=== PATIENT | male | born 1955 | race Two or more races ===

== ENCOUNTER 2024-12-17 18:33 | Emergency (ER) | payer MEDICARE, SELFPAY ==
[2024-12-17] VITALS (18 sets, daily range): BP systolic 103–212; BP diastolic 47–98; PULSE 53–70; RESP 6–24; TEMP 36.6–36.8; O2SAT 94–99; BMI 39.9
--- NOTE | 2024-12-17 19:16 | EKG_ITS ---
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
--- NOTE | 2024-12-17 19:16 | XR_ITS ---
Examination: AP chest single view Technique one AP portable upright chest single view Exam date and time: December 17, 1999 2518.4 hours Comparison March 04, 2024 Indications: Onset chest pain today. Findings: Minimal prominence of ventricle Moderate vascular congestion No lobar pneumonia No pulmonary edema Moderate osteopenia Left carotid stent Impression: Moderate vascular congestion
[2024-12-17 19:36] LABS: Basophils % (Auto) 0 % (0-2.5); Eosinophils # (Auto) 0.1 Thou/mm3 (0.0-0.5); Eosinophils % (Auto) 2 % (0-10); Hematocrit 36.9 % (41.0-53.0); Hemoglobin 12.8 g/dL (13.5-16.0); Immature Granulocytes % (Auto) 1 % (0-0); Immature Granulocytes Auto 0.04 Thou/mm3 (0.00-0.00); Lymphocytes # (Auto) 1.2 Thou/mm3 (1.0-4.8); Lymphocytes % (Auto) 17 % (10-50); Mean Corpuscular HGB Conc 34.7 g/dl (31.0-37.0); Mean Corpuscular Hemoglobin 29.3 pg (25.0-35.0); Mean Corpuscular Volume 84 fL (80-100); Monocytes # (Auto) 0.4 Thou/mm3 (0.0-0.8); Monocytes % (Auto) 6 % (0-12); Neutrophils # (Auto) 5.2 Thou/mm3 (1.8-7.7); Neutrophils % (Auto) 74 % (37-80); Nucleated Red Blood Cell % 0 /100 WBC (0); Platelet Count 120 Thou/mm3 (140-440); RDW Standard Deviation 41.6 fL (35.1-43.9); Red Blood Count 4.37 Miln/mm3 (4.50-5.90); White Blood Count 6.9 Thou/mm3 (3.8-10.6)
[2024-12-17 19:55] LABS: B-Type Natriuretic Peptide 79 pg/mL (0-100)
[2024-12-17 19:57] LABS: Alanine Aminotransferase 41 U/L (10-49); Albumin/Globulin Ratio 1.7 (1.2-2.2); Alkaline Phosphatase 81 U/L (46-116); Anion Gap 7 (7-16); Aspartate Amino Transferase 34 U/L (0-34); BUN/Creatinine Ratio 9 Ratio (12-20); Bilirubin,Total 0.6 mg/dL (0.3-1.2); Blood Urea Nitrogen 10 mg/dL (9-23); Calcium 9.3 mg/dL (8.3-10.6); Calcium (Corrected) 9.3 mg/dL (8.5-10.1); Carbon Dioxide 28.4 mMol/L (20.0-31.0); Chloride 105 mMol/L (98-107); Creatinine (Component) 1.1 mg/dL (0.6-1.3); Globulin 2.3 gm/dL (2.3-3.5); Glucose 107 mg/dL (74-106); Lipase 43 U/L (12-53); Osmolality,Calculated 278 (275-295); Potassium 4.1 mMol/L (3.4-5.1); Sodium 140 mMol/L (136-145); Total Protein 6.3 gm/dL (5.7-8.2); Troponin I < 0.020 ng/mL (0.0-0.045); eGFR > 60 See Note
[2024-12-17 19:59] LABS: INR 1.1 (0.9-1.3); Partial Thromboplastin Time 29.1 Seconds (22.0-36.0); Prothrombin Time 12.4 Seconds (9.0-12.2)
--- NOTE | 2024-12-17 21:15 | XR_ITS ---
Examination: CT brain head without contrast. 2-D sagittal coronal reconstructions Date and time of exam:December 17, 2024 2137 hrs. Indications: Onset syncope dizziness today CTDI: vol (mGy):49.2 DLP: (mGycm):942 Technique: Multiple CT axial sections of the brain have been obtained, 5 mm slice thickness. Contrast has not been administered. 2-D sagittal, coronal reconstructions have been obtained Low dose protocols were performed. One or more of the following dose reduction techniques were used; automated exposure control, adjustment of the mA and/or KV according to patient size, use of iterative reconstruction technique. Findings: No significant ventricular enlargement. Intra-axial or extra-axial hemorrhage density is not seen. No mass effect or midline shift Basal cisterns are not remarkable. Fourth ventricle is midline. Cranial vault intact. Impression: Negative for acute hemorrhage, mass effect or midline shift Advise clinical correlation and follow-up accordingly
--- NOTE | 2024-12-17 21:15 | PD.EDSYNC ---
ED Syncope RME/HPI General Chief Complaint: Syncope / Near Syncope Stated Complaint: HYPOTENSION Time Seen by Provider: 12/17/24 19:12 Source: patient and EMS Arrival date/time: 12/17/24 18:33 Mode of arrival: EMS Limitations: no limitations RME / HPI RME / HPI narrative: DR LOVELL MAIN ED EVALUATION: 69-year-old male, brought to the Emergency Department via ambulance for evaluation of a syncopal episode and generalized weakness. The patient reports loss of consciousness while seated, but the duration of the episode is unclear. He denies any preceding chest pain, palpitations, shortness of breath, dizziness, or visual disturbances prior to the event. No postictal confusion, involuntary movements, or loss of bowel or bladder control was reported. 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 He denies any headache, focal weakness, numbness, or speech difficulties. He does not report any associated pain at this time. Related Data Home Medications ?Medication ?Instructions ?Recorded ?Confirmed Doxazosin Mesylate 8 mg PO HS ##0 01/01/16 03/02/24 hydrochlorothiazide 25 mg tablet 25 mg PO QAM High Blood Pressure 01/01/16 03/02/24 #0 tabs lisinopril 20 mg tablet 10 mg PO QDAY High Blood Pressure 01/01/16 03/02/24 #0 tabs clopidogrel 75 mg tablet (Plavix) 75 mg PO QDAY 05/14/19 03/02/24 atorvastatin 80 mg tablet 80 mg PO QDAY 03/02/24 03/02/24 baclofen 20 mg tablet 20 mg PO QDAY 03/02/24 03/02/24 isosorbide dinitrate 30 mg tablet 30 mg PO 1XD 03/02/24 03/02/24 loratadine 10 mg tablet (Claritin) 10 mg PO DAILY 03/02/24 03/02/24 rivaroxaban 20 mg tablet (Xarelto) 20 mg PO QDAY 03/02/24 03/02/24 sildenafil 25 mg tablet 25 mg PO QDAY 03/02/24 03/02/24 tamsulosin 0.4 mg capsule 0.4 mg PO QDAY 03/02/24 03/02/24 vortioxetine 5 mg tablet 5 mg PO QDAY 03/02/24 03/02/24 (Trintellix) Allergies Allergy/AdvReac Type Severity Reaction Status Date / Time No Known Drug Allergies Allergy Verified 03/04/24 01:10 Review of Systems Review of Systems Systems Reviewed: All systems reviewed, normal except as documented Past Medical History Past Medical History NEUROLOGIC: Positive Cerebrovascular Accident CARDIAC: Positive Atrial Fibrillation, Hypercholesterolemia and Hypertension; Negative Congestive Heart Failure RESPIRATORY: Negative Chronic Obstructive Pulmonary Disease (COPD) GENITOURINARY: Negative Renal Disease ENDOCRINE: Negative Diabetes Mellitus Type 1 or Diabetes Mellitus Type 2 Surgical History SURGICAL: Positive Cardiac Surgery Social History SMOKING STATUS: Never smoker ED Exam Narrative Physical exam: GENERAL APPEARANCE: alert and oriented x 4, well-developed, well-nourished, no acute distress VITALS: All vitals were reviewed and the pulse ox is 96% on room air, which is normal according to my interpretation. HEENT: Normocephalic, atraumatic; pupils equal, round, reactive to light; EOMI; mucous membranes pink, moist; oropharynx clear NECK: Supple LUNGS: CTABL; no wheezes, no rales, no rhonchi HEART: Regular rate, regular rhythm; normal S1, S2; no murmurs ABDOMEN: non distended; normal BS; soft, no tenderness, no guarding, no rebound; no masses, no organomegaly, no hernia BACK: no CVA tenderness EXTREMITIES: atraumatic; no edema NEUROLOGIC: awake; alert and oriented x4; cranial nerves II-XII grossly intact; no focal sensory or motor deficits PSYCHIATRIC: appropriate mood and affect SKIN: warm, dry, normal color; no rashes General Limitations: Present no limitations Course Quality Measures none Orders Category Date Time Status Telecommunication Lines Repairer NOW Care 12/17/24 19:16 Completed EKG (ED ONLY) *Do not use* NOW Care 12/17/24 19:16 Completed Orthostatic Vitals NOW Care 12/17/24 20:[address] head/brain wo con Stat Exams 12/17/24 21:15 Completed EKG (ED Only) Stat Exams 12/17/24 19:16 Draft XR chest 1V portable Stat Exams 12/17/24 19:16 Completed B-Type Natriuretic Peptide Stat Lab 12/17/24 19:29 Completed CBC Stat Lab 12/17/24 19:29 Completed Comprehensive Metabolic Panel Stat Lab 12/17/24 19:29 Completed Lipase Stat Lab 12/17/24 19:29 Completed Magnesium Stat Lab 12/17/24 19:29 Completed Partial Thromboplastin Time Stat Lab 12/17/24 19:29 Completed Prothrombin Time with INR Stat Lab 12/17/24 19:29 Completed Troponin I Stat Lab 12/17/24 19:29 Completed Vital Signs Vital signs: Vital Signs Temperature 97.9 F 12/17/24 18:54 Pulse Rate 70 12/17/24 18:54 Respiratory Rate 18 12/17/24 18:54 Blood Pressure 136/68 H 12/17/24 18:54 Pulse Oximetry (%) 94 L 12/17/24 18:54 Oxygen Delivery Method Room Air 12/17/24 18:54 Syncope MDM Narrative MDM Narrative:: Scribe Attestation: I, Irving Brush, am scribing for and in the presence of Dr. Lovell. Provider Notation: Although this document has been carefully reviewed, there may still be some phonetic and other typographical errors. These errors are purely grammatical due to imperfections in the software program and should not be construed in any way to compromise the substance of the patient's medical care during this visit. Patient data External records reviewed:: [facility] previous records Clinical information provided by:: patient Social determinants that could affect healthcare access:: none Patient has the following chronic illnesses:: see PMH How is presenting disease/condition affected by chronic disease/condition?: uneffected by Evaluation data The following diagnostics were reviewed and interpreted by me:: lab results, radiology exam(s) and EKG tracing(s) Lab and/or radiology exams considered but not ordered:: na Interpretation Summary: I personally reviewed the radiology data and agree with the radiologist's interpretation. Technique one AP portable upright chest single view Exam date and time: December 17, 1999 2518.4 hours Comparison March 04, 2024 Indications: Onset chest pain today. Findings: Minimal prominence of ventricle Moderate vascular congestion No lobar pneumonia No pulmonary edema Moderate osteopenia Left carotid stent Impression: Moderate vascular congestion Dictated By: Nishant Marie MD Examination: CT brain head without contrast. Date and time of exam:December 17, 2024 2137 hrs. Indications: Onset syncope dizziness today Findings: No significant ventricular enlargement. Intra-axial or extra-axial hemorrhage density is not seen. No mass effect or midline shift Basal cisterns are not remarkable. Fourth ventricle is midline. Cranial vault intact. Impression: Negative for acute hemorrhage, mass effect or midline shift Advise clinical correlation and follow-up accordingly Dictated By: Nishant Marie MD EKG manually interpreted by me on 12/17/24 at 19:42 shows sinus bradycardia at a rate of 56 bpm, with no ST elevation or acute ischemic changes. Overall, the interpretation is normal. Medications / Prescriptions Medications or Prescriptions considered but not ordered:: na Medication administrations:: as above, if any Consultations Consultation(s) initiated? (list below): No Diagnosis Syncope Differential Diagnosis: syncope due to orthostatic hypotension, vasovagal syncope and dehydration Most likely diagnosis given after review of the tests above:: Syncope Admission Indicated Admission indicated?: not indicated Admission Request Was there a request for admission?: No Disposition Plan Disposition Plan: Discharge Discharge Attestation Discharge Attestation: The patient and all family members were given an opportunity to ask questions and understood the discharge instructions. Discharge instructions specifically effects, indications for sooner follow up or return to the emergency department, and the expected course of current diagnosis. Patient condition: Stable Discharge Plan Plan Patient Disposition: HOME (Self Care) Prescriptions/Referrals Prescriptions/Med Rec: No Action lisinopril 20 MG tablet 10 mg PO QDAY Qty: 0 hydrochlorothiazide 25 MG tablet 25 mg PO QAM Qty: 0 Doxazosin Mesylate 4 MG tablet 8 mg PO HS Qty: 0 clopidogrel [Plavix] 75 mg Tablet 75 mg PO QDAY atorvastatin 80 mg Tablet 80 mg PO QDAY sildenafil 25 mg Tablet 25 mg PO QDAY baclofen 20 mg Tablet 20 mg PO QDAY isosorbide dinitrate 30 mg Tablet 30 mg PO 1XD Rx Instructions: allow nitrate-free interval of 12-14 hrs per 24-hr period tamsulosin 0.4 mg Capsule 0.4 mg PO QDAY loratadine [Claritin] 10 mg Tablet 10 mg PO DAILY Xarelto 20 mg Tablet 20 mg PO QDAY Rx Instructions: must administer with evening meal Trintellix 5 mg Tablet 5 mg PO QDAY Referrals: Rob Caal MD [Primary Care Provider] - In 1 week Problem List Clinical Impression: Syncope Patient/Caregiver Discharge Instructions Education Materials: ED Fainting, Uncertain Cause Print Language: Liberian Stand Alone Forms: [employer] Award Info., Patient Portal Info Letter
[2024-12-18 00:01] VITALS: BP 176/77; PULSE 59; RESP 12; O2SAT 95
[2024-12-18 00:03] VITALS: BP 176/77; PULSE 57; RESP 16; TEMP 36.6; O2SAT 96
[2024-12-18 00:31] VITALS: BP 149/79; PULSE 57; RESP 21; O2SAT 98
[2024-12-18 01:01] VITALS: BP 176/92; PULSE 59; RESP 19; O2SAT 97
[2024-12-18 01:30] VITALS: BP 174/93; PULSE 63; RESP 9; O2SAT 95
[2024-12-18 02:02] VITALS: BP 157/84; PULSE 67; RESP 17; O2SAT 98
== END 2024-12-18 02:21 | disposition home or self-care (01) ==
PROVIDERS: Emergency Provider Emergency Medicine; PCP Family Medicine
DX: R55 Syncope and collapse (principal); R07.9 Chest pain, unspecified
CPT/HCPCS: 36415; 70450; 71045; 80053; 83690; 83735; 83880; 84484; 85025; 85610; 85730; 93005; 99284

== ENCOUNTER → 2025-09-28 | Outpatient (CLI) | payer MEDICARE, SELFPAY ==
--- NOTE | 2025-09-28 14:30 | XR_ITS ---
Examination: CT chest, without intravenous contrast. Sagittal and coronal 2-D reconstructions. Exam date and time: September 28, 2025, 1459 hours INDICATIONS: Coughing beginning 8 months ago CTDI:vol (mGy) 19.4 DLP: (mGycm) 767 Technique: Multiple 3.0 mm axial sections of the chest to been obtained. Bone and lung density settings are obtained. Sagittal and coronal 2-D reconstructions have been obtained. Low dose protocols were performed. One or more of the following dose reduction techniques were used; automated exposure control, adjustment of the mA and/or KV according to patient size, use of iterative reconstruction technique. Findings: Heavy thoracic aortic calcification no aneurysmal dilatation Pulmonary artery segments are not enlarged Significant calcification left main and left anterior descending coronary arteries Mild enlargement cardiac contour 2 mm pulmonary nodule right upper lobe image 158 4 mm pleural-based pulmonary nodule right lower lobe image 209 14 mm pulmonary nodule right lower lobe image 230 No pneumonia or pulmonary edema No visualized liver or splenic lesion No gallstones No pancreatic or adrenal mass No hydronephrosis, kidneys partially visualized Severe osteopenia with moderate thoracic spondylosis IMPRESSION: Heavy thoracic aortic calcification no aneurysmal dilatation Significant calcification left main and left anterior descending coronary artery Pulmonary nodules as above, including 14 mm pulmonary nodule right lower lobe, differential would include early pulmonary nodular metastatic disease. No pneumonia or pulmonary edema
== END | disposition home or self-care (01) ==
PROVIDERS: PCP Family Medicine; Referring Provider Family Medicine; Visit Provider Family Medicine
DX: I70.0 Atherosclerosis of aorta (principal); I25.10 Atherosclerotic heart disease of native coronary artery without angina pectoris
CPT/HCPCS: 71250